=== PATIENT | female | born 1975 | race Caucasian/White ===

== ENCOUNTER 2017-12-20 05:36 | Inpatient (IN) ==
[2017-12-20] MEDS ORDERED: Lactated Ringers 1,000 ML PRIMARY IV ONE ×2 (05:48→06:00)
[2017-12-20] MEDS ORDERED: LIDOCAINE W/ SODIUM BICARB 0.5 ML SYR ONE (05:48)
[2017-12-20] MEDS ORDERED: ceFAZolin Inj 2gm (Premix) 0 GM/0 ML BAG IV ONE (05:48)
[2017-12-20] MEDS ORDERED: CLINDAMYCIN IV ONE (05:55)
[2017-12-20] MEDS ORDERED: LIDOCAINE W/ SODIUM BICARB 0.5 ML SYR SUBD ONE (06:00)
[2017-12-20] MEDS ORDERED: Nasal Sanitizer POPSWAB ampule 3 AMP (Nozin) PREOP DOSE ENOS SCH (06:00)
[2017-12-20] MEDS ORDERED: Clindamycin 900mg (Premix) 900 MG/50 ML BAG IV ONE (06:00)
[2017-12-20 06:07] LABS: URINE SPECIFIC GRAVITY - MAN 1.024
[2017-12-20 06:45] VITALS: BP 100/69; RESP 18; TEMP 97.4; O2SAT 95
[2017-12-20] MEDS ORDERED: Propofol 1,000 MG/100 ML VIAL IV ONE (07:05)
[2017-12-20] MEDS ORDERED: MIDAZOLAM 5 MG/1 ML ONE (07:06)
[2017-12-20] MEDS ORDERED: fentaNYL Inj 250 MCG/5 ML VIAL ONE (07:06)
[2017-12-20] MEDS ORDERED: REMIFENTANIL 1 MG/1 ML IV ONE (07:06)
[2017-12-20] MEDS ORDERED: LIDOCAINE MPF 2% - 5 ML (20 MG/1 ML) ONE (07:12)
[2017-12-20] MEDS ORDERED: Sodium Chloride 0.9% vial 0 ML ONE (07:25)
[2017-12-20] MEDS ORDERED: BUPIVACAINE 0.25% W/ EPI - 10 ML VIAL ONE (07:25)
[2017-12-20] MEDS ORDERED: BACITRACIN 50,000 UNIT VIAL IRRIG ONE (07:25)
--- NOTE | 2018-01-01 15:28 | PDOC(PROG) ---
General Note Progress Note: Ms. Valdez was to undergo a multilevel anterior cervical discectomy and fusion. She was admitted to the pre-operative area and I updated her surgical history and physical, reviewed the procedure to be performed with the patient and checked that her consent matched this, and answered any questions that Ms. Valdez had. Shortly after, she started having severe abdominal cramps and diarrhea. Her surgery was cancelled and she was sent to the Emergency Department for evaluation.
--- NOTE | 2018-01-01 15:34 | NEURO.DC ---
Discharge Summary Admit Date: 12/20/17 Discharge Date: 12/20/17 Admitting Diagnosis: Neck pain Discharge Diagnosis: Neck pain/abdominal cramps/diarrhea Primary Surgery and Date: Surgery Cancelled Other Surgery and Date: None Hospital Course: Patient was discharged from the pre-operative area to present to the Emergency Department for the severe abdominal cramps and diarrhea that she developed in the pre-operative area prior to her planned surgical procedure. Her surgical procedure was subequently cancelled. See physician note from same day for more details. Exam - Vitals Vital Signs: Vital Signs Temperature 97.4 F Pulse Rate 55 Respiratory Rate 18 Blood Pressure 100/69 Pulse Ox 95 Oxygen Flow Rate RA Height 5 ft 2 in Weight 164 lb
== END 2017-12-20 08:05 | disposition short-term general hospital (02) | DRG 951 ==
LOC: OPS 05:36
PROVIDERS: ADMIT Neurological Surgery; ATTEND Neurological Surgery

== ENCOUNTER 2018-03-08 05:40 | Inpatient (IN) ==
[2018-03-08] MEDS ORDERED: Clindamycin 900mg (Premix) 900 MG/50 ML BAG IV ONE ×2 (06:00→06:07)
[2018-03-08] MEDS ORDERED: Nasal Sanitizer POPSWAB ampule 3 AMP (Nozin) PREOP DOSE ENOS SCH (06:00)
[2018-03-08] MEDS ORDERED: LIDOCAINE W/ SODIUM BICARB 0.5 ML SYR SUBD ONE (06:00)
[2018-03-08] MEDS ORDERED: Lactated Ringers 1,000 ML PRIMARY IV ONE ×2 (06:00→06:07)
[2018-03-08] MEDS ORDERED: LIDOCAINE W/ SODIUM BICARB 0.5 ML SYR ONE ×2 (06:07→07:13)
[2018-03-08] MEDS ORDERED: ATROPINE SULFATE 0.4 MG/1 ML VIAL IVP PRN (06:33)
[2018-03-08] MEDS ORDERED: ONDANSETRON 4 MG/2 ML VIAL IVP PRN ×2 (06:33→14:41)
[2018-03-08] MEDS ORDERED: LIDOCAINE W/ SODIUM BICARB 0.5 ML SYR SUBD PRN (06:33)
[2018-03-08] MEDS ORDERED: Ondansetron ODT Tab 8 MG TAB PO PRN (06:33)
[2018-03-08] MEDS ORDERED: fentaNYL Inj 100 MCG/2 ML VIAL IVP PRN (06:33)
[2018-03-08] MEDS ORDERED: Prochlorperazine Edisylate Inj 10mg/2ml vial IVP PRN ×2 (06:33→14:41)
[2018-03-08 06:39] LABS: URINE SPECIFIC GRAVITY - MAN 1.015
[2018-03-08 06:43] LABS: BILIRUBIN,URINE NEGATIVE (NEG); CLARITY,URINE CLEAR (CLEAR); COLOR,URINE YELLOW (Y); GLUCOSE, URINE (UA) NEGATIVE (NEG); OCCULT BLOOD,URINE NEGATIVE (NEG); PH,URINE 5.5 (5.0-8.5); PROTEIN,URINE NEGATIVE (NEG); UROBILINOGEN,URINE 0.2 EU/dL (0.2)
[2018-03-08 06:44] LABS: BACTERIA,URINE FEW; SQUAMOUS EPITHELIAL CELL,UR MANY; URINE SAMPLE TYPE VOIDED SPECIMEN
[2018-03-08] MEDS ORDERED: Lactated Ringers 1,000 ML PRIMARY IV SCH (06:45)
[2018-03-08] MEDS ORDERED: fentaNYL Inj 250 MCG/5 ML VIAL ONE (06:52)
[2018-03-08] MEDS ORDERED: MIDAZOLAM 5 MG/1 ML ONE (06:52)
[2018-03-08] MEDS ORDERED: KETAMINE 100 MG/1 ML - 5 ML ONE (06:52)
[2018-03-08] MEDS ORDERED: Propofol 2,000 MG/200 ML VIAL IV ONE (06:53)
[2018-03-08] MEDS ORDERED: REMIFENTANIL HCL 2 MG VIAL IV ONE (06:54)
[2018-03-08] MEDS ORDERED: VECURONIUM BROMIDE 10 MG VIAL ONE (07:03)
[2018-03-08] MEDS ORDERED: BUPIVACAINE 0.25% W/ EPI - 10 ML VIAL ONE (07:12)
[2018-03-08] MEDS ORDERED: Sodium Chloride 0.9% vial 10 ML ONE ×3 (07:12→12:09)
[2018-03-08] MEDS ORDERED: BACITRACIN 50,000 UNIT VIAL IRRIG ONE ×3 (07:13→12:10)
[2018-03-08] MEDS ORDERED: DEXAMETHASONE PF 10 MG/1 ML VIAL ONE (08:11)
[2018-03-08] MEDS ORDERED: GLYCOPYRROLATE 0.2 MG/1 ML VIAL ONE (08:12)
[2018-03-08] MEDS ORDERED: Propofol 1,000 MG/100 ML VIAL IV ONE (11:29)
[2018-03-08] MEDS: HYDROmorphone 2 MG/1 ML IVP PRN ×5 (12:56→14:14)
[2018-03-08] MEDS ORDERED: HYDROmorphone 2 MG/1 ML ONE ×2 (13:00→13:30)
[2018-03-08] MEDS ORDERED: BISACODYL 5 MG TABLET PO PRN (14:41)
[2018-03-08] MEDS ORDERED: PROMETHAZINE 25 MG/1 ML VIAL IM PRN (14:41)
[2018-03-08] MEDS ORDERED: DOCUSATE 100 MG CAPSULE PO PRN (14:41)
[2018-03-08] MEDS ORDERED: MAGNESIUM 400 MG/5 ML - 30 ML (MILK OF MAGNESIA) PO PRN (14:41)
[2018-03-08] MEDS ORDERED: Fleet Enema 133ml RECTAL PRN (14:41)
[2018-03-08] MEDS ORDERED: MAGNESIUM CITRATE 296 ML SOLUTION PO PRN (14:41)
[2018-03-08] MEDS ORDERED: MORPHINE SULFATE 2 MG/1 ML IVP PRN (14:41)
[2018-03-08] MEDS ORDERED: Ondansetron ODT Tab 4 MG TAB PO PRN ×2 (14:41)
[2018-03-08] MEDS ORDERED: ALBUTEROL SULFATE 8.5 GM HFA INHALER INH PRN (14:41)
[2018-03-08] MEDS ORDERED: ALBUTEROL SULFATE 2.5 MG/3 ML NEB PRN (14:59)
[2018-03-08] MEDS: Clindamycin 900mg (Premix) 900 MG/50 ML BAG IV SCH (15:32)
[2018-03-08] MEDS: Dexamethasone Tab 4 MG TABLET PO SCH ×2 (15:33→21:35)
[2018-03-08] MEDS: HYDROcodone-APAP 10 MG-325 MG TABLET PO PRN ×2 (17:26→21:36)
--- NOTE | 2018-03-08 17:51 | CRNA.PROGR ---
Post Anesthesia Phase II - Post Anesthesia Phase II Patient Stable and Discharged To: Med/Surg Care Assumed By Surgeon: Tahir Castillo MD Temperature: 97.8 F Pulse Rate: 78 Respiratory Rate: 20 Blood Pressure: 110/52 Pulse Ox: 98 Total Sindhu Score at Discharge: 9 Post Anesthesia Discharge Criteria Met: Yes
--- NOTE | 2018-03-08 17:51 | CRNA.PROGR ---
Anesthesia Time - Procedure/Recovery Time Start Date: 03/08/18 End Date: 03/08/18 Anesthesia : Time In: 07:22 Anesthesia : Time Out: 12:51 Anesthesia : Total Time: 329 - Total Anesthesia Time Total Anesthesia Time (minutes): 329 - Other Weight: 72.575 kg Height: 5 ft 2 in Body Mass Index (BMI): 29.2 Physical Status: P2 Anesthesia Type: General Anesthesia : ET (NIMS Technique)
--- NOTE | 2018-03-08 17:56 | CRNA.PROGR ---
Anesthesia Note - Progress Notes Anesthesia Progress Note: Spome nausea this evening. Pain comes and goes. Has an element of spasm to it. Some nausea present. Relieved with Zofran.Able to swallow okay.
[2018-03-08] MEDS: CYCLOBENZAPRINE 10 MG TABLET PO PRN (19:28)
--- NOTE | 2018-03-08 19:38 | GEN.OPNOTE ---
Operative Note Surgery Date: 03/08/18 Preoperative Diagnosis: 1. Neck pain. 2. Cervicogenic headaches. 3. Right upper extremity radicular symptoms. 4. Multilevel cervical degenerative disc disease C4-5, C5-6 and C6-7. 5. Multilevel cervical spondylosis C4-5, C5-6 and C6-7. 6. Broad based disc bulge with a super imposed right paracentral herniated nucleus pulposus C5-6. 7. Broad based disc bulge with super imposed left paracentral/lateral disc herniation C6-7. Postoperative Diagnosis: 1. Neck pain. 2. Cervicogenic headaches. 3. Right upper extremity radicular symptoms. 4. Multilevel cervical degenerative disc disease C4-5, C5-6 and C6-7. 5. Multilevel cervical spondylosis C4-5, C5-6 and C6-7. 6. Broad based disc bulge with a super imposed right paracentral herniated nucleus pulposus C5-6. 7. Broad based disc bulge with super imposed left paracentral/lateral disc herniation C6-7. Procedure: 1.) Anterior cervical discectomy, C4-5 with removal of the posterior longitudinal ligament and foraminotomies bilaterally for decompression of the spinal canal and neuroforamen bilaterally, and interbody arthrodesis in preparation for fusion of the C4-5 level. (CPT code: 59730). 2.) Anterior cervical discectomy, C5-6 with removal of the posterior longitudinal ligament and foraminotomies bilaterally for decompression of the spinal canal and neuroforamen bilaterally, and interbody arthrodesis in preparation for fusion of the C5-6 level. (CPT code: 92556). 3.) Anterior cervical discectomy, C6-7 with removal of the posterio longitudingal ligament and foraminotomies bilaterally for decompression of the spinal canal and neuroforamen bilaterally, and interbody arthrodesis in preparation for fusion of the C6-7 level. (CPT code: 81779). 4.) Insertion of a 7 mm x 14 mm x 16 mm Tritanium C titanium anterior cervical cage filled in the center with Cerapedic's i-FACTOR peptide enhanced bone graft into the C4-5 interspace for fusion of the C4-5 interspace (CPT code: 10628). 5.) Insertion of a 7 mm x 14 mm x 16 mm Tritanium C titanium anterior cervical cage filled in the center with Cerapedic's i-FACTOR peptide enhanced bone graft into the C5-6 interspace for fusion of the C5-6 interspace. (CPT code: 63940). 6.) Insertion of a 7 mm x 14 mm x 16 mm Tritainum C titanium anterior cervical cage filled in the center with Cerapedic's i-FACTOR peptide enhanced bone graft into the C6-7 interspace for fusion of the C5-6 interspace. (CPT code: 21456). 7.) Anterior cervical plating, C4-C7 using a 3 level, 8- hole, 48 mm [place] Aviator titanium anterior cervical plate affixed to the C4, C5, and C6 vertebral bodies using 4.0 x 16 mm variable angle titanium anterior cervical screws and to the C7 vertebral body using 4.0 x 16 mm fixed angle titanium anterior cervical screws. 8.) Use of Cerapedic's i-FACTOR peptide enhanced bone graft (allograft) for filling of the anterior cervical cages (CPT code: 11724). 9.) Use of the operative microscope for the microsurgical techniques used for the discectomies. (CPT code: 72714). 10.) Use of intra- operative fluoroscopy for localization of correct surgical levels and for confirmation of final position of intervertebral cage and confirmation of final position of anterior cervical hardware elements. 11.) Use of intra-operative neuromonitoring including free running EMG's, SSEP's, and MEP's. 5.) Surgeon: Tahir Castillo MD Press Setter: LUIS EDUARDO Sorenson Anesthesia Provider: Nicole Villafana CRNA Anesthesia Type: General Estimated Blood Loss (mL): 175 Fluids: See anesthesia record Pathology: None Indications: Ms. Valdez is a 42 year old female who has had neck and right arm pain unresponsive to expectant management and non-operative therapies. She had imaging studies demonstrating degenerative disc disease and cervical spondylosis most prominent at C4-5, C5-6, and C6-7 with a right C5-6 and left C6-7 herniated nucleus propulsis and multilevel severe neuroforaminal stenosis. We discussed the option of proceeding with a C4-5, C5-6, and C6-7 anterior cervical discectomy and fusion for her persistent chronic neck pain and arm symptoms. She wished to proceed with surgical treatment. She presents today for the procedure. Findings: 1.) Diffuse posterior disc/osteophyte complexes, C4-5, C5-6, C6-7. 2.) Uncovertebral hypertrophy. 3.) Right C5-6 and left C6-7 herniated nucleus propulsis. 4.) Multilevel neuroforaminal stenosis. Complications: None Operative Summary: Miss Valdez was met in the preoperative area. Her surgical history and physical was reviewed. The procedure to be performed was confirmed with Ms. Valdez and we were both in agreement on the procedure to be performed and this matched what was written on the patient's consent form. Any questions that Mrs. Valdez or family members had were answered before she was taken back to the operating room suite. Miss Valdez was brought back to the operating room suite and moved over onto the surgical bed in the supine position. General anesthesia was induced and she was intubated by the anesthesia staff. She had a Graf catheter placed or bladder for the procedure. She pneumatic compression hose placed on her lower legs bilaterally. Her head rested on a gel ring and rolled up surgical towels were placed beneath her shoulders and in between her shoulder blades. Her arms are gently tucked at her sides. All bony prominences were well padded. Her shoulders were gently retracted with surgical tape. The C-arm fluoroscopy unit was used to help localize the skin incision for the approach to the intended surgical levels. The intended skin incision was demarcated along the medial border of the sternocleidomastoid muscle with a skin marker. Several crosshatches were made across the intended skin incision with a skin marker as well. Ms. Valdez was prepped and draped in the usual and standard fashion. She was given 900 mg of Cleocin IV for perioperative antibiosis. She was given 10 mg of Decadron IV. The intended skin incision was injected subcutaneously with quarter percent Marcaine with 1 in 200,000 epinephrine. 5 mL of local anesthetic was used. The skin was incised with a 10 blade scalpel and all dermal and superficial subcutaneous bleeding points were controlled bipolar cautery. The dissection was continued down to the level of the platysma muscle. The platysmal muscle w as opened in the direction of the skin incision with the Metzenbaum scissors. This allowed identification and the medial border of the sternocleidomastoid muscle. A large vein along the medial border of the sternocleidomastoid muscle was encountered. This vein had two much smaller veins proceeding medially which were coagulated with bipolar cautery and cut with microscissors. The large vein was dissected out and mobilized such that it could be moved laterally or medially as needed for the further surgical dissection. Further dissection yielded the omohyoid muscle. The large vein was mobilized laterally for the further dissection for the procedure. The omohyoid muscle was circumferentially dissected and was then tagged medially and laterally with silk sutures. The muscle was then cut sharply with the Metzenbaum scissors. The muscle stumps were retracted with the silk sutures attached snaps. Further dissection was performed in both sharp and blunt fashion down to the prevertebral fascia. The carotid artery was palpated to the lateral to the dissection plane. The Cloward hand-held retractors were then used to retract and protect the soft tissues while the prevertebral fascia was dissected with a Kitner instrument. When he disc space became exposed, the disc space with a prominent anterior osteophyte complex, a bent spinal needle was placed into the disc space and the disc space was localized with lateral fluoroscopy as being the C5-6 disc space. Further prevertebral dissection was performed with a Kitner instrument until the C4 C5 C6 and C7 vertebral bodies were exposed. The large anterior osteophyte at C5-6 was removed with a large Leksell rongeur. The medial border of the longus coli muscle was then dissected with Bovie cautery with an insulated tip turned down to a low setting from C4-C7 bilaterally. The hand-held Cloward retractors were then replaced with the belt maker helper self-retaining retractor system which was first placed across the C4-5 level for the exposure this level and the protection of the soft tissues at this level. 12 mm Milford distraction pins were placed into the C4 and C5 vertebral bodies. The operative microscope was brought into the surgical field and used for microsurgical techniques used for the discectomy at C4-5. An annulotomy was performed with a 15 blade scalpel and disc material was removed with a pituitary rongeur. Additional disc and cartilaginous endplate was loosened in the interspace with a small straight curet. The fragments were removed with a pituitary rongeur. The Sunfire high-speed electrical drill with a matchstick bit was then used to decorticate the C4 and C5 endplates in preparation for fusion of the C4-5 interspace. The same drill with the same bit was then used to drill away the diffuse osteophytes along the posterior inferior aspect of the C4 vertebral body and the posterior superior aspect of the C5 vertebral body. The uncovertebral joint hypertrophy was drilled away b ilaterally as well and foraminotomies were performed bilaterally with the same drill with the same bit. A nerve hook was used to define the plane between the posterior longitudinal ligament and the dura. The posterior longitudinal ligament was completely removed in the interspace with a small Kerrison punch. The same instrument was used to extend the foraminotomies that had been started with the high-speed drill with a matchstick bit. Excellent decompression of the spinal canal, neuroforamen, and exiting nerve roots was assured both by visual inspection as well as by palpation with a nerve hook underneath vertebral bodies and out the neuroforamen bilaterally. Interspace was irrigated with bacitracin irrigation. FloSeal hemostatic agent was placed over the exposed dural elements. The interspace was sized for the appropriate size anterior cervical cage. A 7 mm x 14 mm x 16 mm Tritanium C titanium anterior cervical cage was selected and filled in the center with Cerapedic's i-FACTOR peptide enhanced bone graft (allograft) and inserted into the C4-5 interspace with the laboratory geneticist. The cage was gently countersunk with a bone tamp and mallet. The cage obtained good purchase between the C4 and C5 endplates. The final position of the cage was confirmed with lateral fluoroscopy. The C4 [place] distraction pin was removed. Bony bleeding was controlled with FloSeal hemostatic agent and surgical patties. The belt maker helper self-retaining retractor system was removed and then placed across the C5-6 level for the exposure of this level on the protection of the soft tissues at this level. The [place] distraction pin was placed into this the C6 vertebral body. The operative microscope was used for microsurgical techniques used for the discectomy at C5-6. An annulotomy was performed with a 15 blade scalpel and disc material was removed with a pituitary rongeur. Additional disc and cartilaginous endplate was loosened in the interspace with a small straight curet. The fragments were removed with a pituitary rongeur. A right sided herniated nucleus propulsis was encountered at this level as expected and removed with the pituiatary rongeur. The [employer] [place] Chau high-speed electrical drill with a matchstick bit was then used to decorticate the C5 and C6 endplates in preparation for fusion of the C5-6 interspace. The same drill with the same bit was then used to drill away the diffuse osteophytes along the posterior inferior aspect of the C5 vertebral body and the posterior superior aspect of the C6 vertebral body. The uncovertebral joint hypertrophy was dri lled away bilaterally as well and foraminotomies (severe bilateral neuroforaminal stenosis was encountered at this level) were performed bilaterally with the same drill with the same bit. A nerve hook was used to define the plane between the posterior longitudinal ligament and the dura. The posterior longitudinal ligament was completely removed in the interspace with a small Kerrison punch. The same instrument was used to extend the foraminotomies that had been started with the high-speed drill with a matchstick bit. Excellent decompression of the spinal canal, neuroforamen, and exiting nerve roots was assured both by visual inspection as well as by palpation with a nerve hook underneath vertebral bodies and out the neuroforamen bilaterally. Interspace was irrigated with bacitracin irrigation. FloSeal hemostatic agent was placed over the exposed dural elements. The interspace was sized for the appropriate size anterior cervical cage. A 7 mm x 14 mm x 16 mm Tritanium C titanium anterior cervical cage was selected and filled in the center with Cerapedic's i-FACTOR peptide enhanced bone graft (allograft) and inserted into the C5-6 interspace with the laboratory geneticist. The cage was gently countersunk with a bone tamp and mallet. The cage obtained good purchase between the C5 and C6 endplates. The final position of the cage was confirmed with lateral fluoroscopy. The C5 [place] distraction pin was removed. Bony bleeding was controlled with FloSeal hemostatic agent and surgical patties. The belt maker helper self-retaining retractor system was removed and then placed across the C6-7 level for the exposure of this level on the protection of the soft tissues at this level. The [place] distraction pin was placed into this the C7 vertebral body. The operative microscope was used for microsurgical techniques used for the discectomy at C6-7. An annulotomy was performed with a 15 blade scalpel and disc material was removed with a pituitary rongeur. Additional disc and cartilaginous endplate was loosened in the interspace with a small straight curet. The fragments were removed with a pituitary rongeur. A left sided herniated nucleus propulsis was encountered at this level as expected and removed with the pituiatary rongeur. The Sunfire high-speed electrical drill with a matchstick bit was then used to decorticate the C6 and C7 endplates in preparation for fusion of the C6-7 interspace. The same drill with the same bit was then used to drill away the diffuse osteophytes along the posterior inferior aspect of the C6 vertebral body and the posterior superior aspect of the C7 vertebral body. The uncovertebral joint hypertrophy was drilled away bilaterally as well and foraminotomies (severe bilateral neuroforaminal stenosis was encountered at this level as well) were performed bilaterally with the same drill with the same bit. A nerve hook was used to define the plane between the posterior longitudinal ligament and the dura. The posterior longitudinal ligament was completely removed in the interspace with a small Kerrison punch. The same instrument was used to extend the foraminotomies that had been started with the high-speed drill with a matchstick bit. Excellent decompression of the spinal canal, neuroforamen, and exiting nerve roots was assured both by visual inspection as well as by palpation with a nerve hook underneath vertebral bodies and out the neuroforamen bilaterally. Interspace was irrigated with bacitracin irrigation. FloSeal hemostatic agent was placed over the exposed dural elements. The interspace was sized for the appropriate size anterior cervical cage. A 7 mm x 14 mm x 16 mm Tritanium C titanium anterior cervical cage was selected and filled in the center with Cerapedic's i-FACTOR peptide enhanced bone graft (allograft) and inserted into the C6-7 interspace with the laboratory geneticist. The cage was gently countersunk with a bone tamp and mallet. The cage obtained good purchase between the C6 and C7 endplates. The final position of the cage was confirmed with lateral fluoroscopy. The [place] distraction pins were removed. Bony bleeding was controlled with FloSeal hemostatic agent and surgical patties. The belt maker helper self-retaining retractor system was removed and then placed in the center of the surgical dissection for the exposure needed for the instrumentation portion of the procedure. Any remaining anterior osteophytes from C4-C7 were removed with a large Leksell rongeur and the high-speed electrical drill with a matchstick bit. The appropriate size anterior cervical plate was selected both by visual inspection as well as by lateral fluoroscopy. A 3 level VIII hole 48 mm Sofie aviator titanium anterior cervical plate was selected and affixed to the C4, C5, and C6 vertebral bodies using 4.0 mm x 16 mm variable angle titanium anterior cervical screws into the C7 vertebral body using 4.0 mm x 16 mm fixed angle titanium anterior cervical screws. All screws obtained good purchase in the vertebral body bone. The locking mechanism was then deployed at each level and visual observation confirmed with a locking mechanism indeed fully deployed across each of the screw heads at each level bilaterally. Final AP and lateral fluoroscopic images were obtained. The belt maker helper self-retaining retractor system was removed from the surgical site. The reese of the dissection planes were inspected for any bleeding points. Any identified were coagulated with bipolar cautery. The surgical site was copiously irrigated with bacitracin irrigation. The irrigant was allowed to sit looking for the identification of any further bleeding points and none were identified. The medium SELENE drain was placed into the surgical site. The omohyoid muscle was reapproximated with the 2-0 silk suture attached the muscle stumps. The platysma muscle was reapproximated with 3-0 Vicryl suture in an interrupted fashion. The dermis and superficial subcutaneous tissue was reapproximated with 3-0 Vicryl suture in an inverted interrupted fashion. The final layer of closure was performed with 4-0 Monocryl suture in a running subcuticular fashion. The Ioban drape was pulled back from the skin edges. The skin edges were cleansed with bacitracin soaked sponge. Steri-Strips were placed across the incision. The incision was dressed with a Mepilex dressing. The surgical drain was secured with suture. The drain site was then dressed. All surgical drapes removed from Ms. Valdez. She was then carefully moved over onto the PACU stretcher. She was awoken and a the anesthesia staff. She w as taken the recovery room in stable condition. All surgical counts reported as correct by the scrub and circulating personnel. A physician's assistant grocery store manager, Mrs. Shalonda Barnes PA-C, assisted with the procedure including the exposure and closure portions of the procedure. She also provided irrigation and suctioning throughout the procedure.
--- NOTE | 2018-03-08 21:19 | NEURO.PROG ---
Subjective Post Op Day: 0 Pain Management: PO Graf Catheter: Yes Diet: Regular Ambulating: Yes Additional Details: Awake and alert. Lying comfortable in floor bed. Indicates that arm symptoms improved. Neck soft and flat. Moving all extremities well. PLAN: 1.) Continue post-operative antibiotics. 2.) Continue post-operative pain control. 3.) Advance diet. 4.) Mobilize. Objective : Data - Vital Signs Vital Signs and I&O: Vital Signs - Last Taken Temperature 97.8 F 03/08/18 16:41 Pulse Rate 104 H 03/08/18 16:41 Respiratory Rate 20 03/08/18 16:41 Blood Pressure 131/89 03/08/18 16:41 Pulse Ox 98 03/08/18 16:41 Intake and Output (24hr x 4 totals) 03/06/18 03/07/18 03/08/18 03/09/18 05:59 05:59 05:59 05:59 Intake Total 3240 / 3240 Output Total 1170 / 1170 Balance 2069 / 2069
[2018-03-09] MEDS: Clindamycin 900mg (Premix) 900 MG/50 ML BAG IV SCH (00:36)
[2018-03-09] MEDS: HYDROcodone-APAP 10 MG-325 MG TABLET PO PRN ×2 (01:48→08:52)
[2018-03-09] MEDS: CYCLOBENZAPRINE 10 MG TABLET PO PRN (01:48)
[2018-03-09] MEDS: Dexamethasone Tab 4 MG TABLET PO SCH ×2 (01:49→08:52)
--- NOTE | 2018-03-09 05:07 | NEURO.PROG ---
Subjective Post Op Day: 1 Pain Management: PO Graf Catheter: No Flatus: Yes Diet: Regular Ambulating: Yes Additional Details: Awake and alert. No complaints. Neck better. Pain under arms resolved. Neck soft and flat. Able to lift arms and place hands on head and straight up in the air bilaterally. Good movement all extremities. PLAN; 1.) Continue post-operative antibiotics. 2.) Continue post-operative pain medications. 3.) Continue to mobilize. 4.) Discharge to home later this morning. Objective : Data - Vital Signs Vital Signs and I&O: Vital Signs - Last Taken Temperature 97.6 F 03/09/18 00:41 Pulse Rate 88 03/09/18 00:41 Respiratory Rate 18 03/09/18 00:41 Blood Pressure 107/63 03/09/18 00:41 Pulse Ox 95 03/09/18 03:50 Intake and Output (24hr x 4 totals) 03/06/18 03/07/18 03/08/18 03/09/18 05:59 05:59 05:59 05:59 Intake Total 4215 / 4215 Output Total 2885 / 2885 Balance 1330 / 1330
[2018-03-09 05:19] LABS: BASOPHILS # (AUTO) 0.01 10*3/UL; BASOPHILS % (AUTO) 0.1 % (0-1); EOSINOPHILS # (AUTO) 0 10*3/UL; EOSINOPHILS % (AUTO) 0 % (0-8); Hematocrit [HCT] 34.6 % (37.0-47.0); Hemoglobin [HGB] 10.7 g/dL (12.0-16.0); LYMPHOCYTES # (AUTO) 0.67 10*3/uL; MEAN CORPUSCULAR HEMOGLOBIN 26.7 PG (27-31); MEAN CORPUSCULAR HGB CONC 30.9 g/dL (33-37); MEAN CORPUSCULAR VOLUME 86.3 FL (81-99); MEAN PLATELET VOLUME 9.9 FL (7.4-12.2); MONOCYTES # (AUTO) 0.22 10*3/UL (0.3-0.8); MONOCYTES % (AUTO) 1.8 % (5-15); NEUTROPHILS # (AUTO) 11.56 10*3/UL; NEUTROPHILS % (AUTO) 92.5 % (50-80); RED BLOOD COUNT 4.01 10^6/uL (4.20-5.40)
[2018-03-09 05:33] LABS: BLOOD UREA NITROGEN 12 mg/dL (7-22)
[2018-03-09 06:10] LABS: PLATELET MORPHOLOGY COMMENT NORMAL MORPHOLOGY (NORM); RBC MORPHOLOGY COMMENT NORMAL MORPHOLOGY (NORM); WBC MORPHOLOGY COMMENT NORMAL MORPHOLOGY (NORM)
[2018-03-09] MEDS ORDERED: OMEPRAZOLE 20 MG CAPSULE PO SCH (07:00)
[2018-03-09] MEDS ORDERED: Multivitamin Tab 1 TAB PO SCH (09:00)
[2018-03-09] MEDS ORDERED: Triamterene/HCTZ 75/50 Tab 1 TAB TAB PO SCH (09:00)
--- NOTE | 2018-03-09 09:23 | NEURO.PROG ---
Subjective Post Op Day: 1 Pain Management: PO Graf Catheter: No Flatus: Yes Diet: Regular Ambulating: Yes Additional Details: Ms Valdez is ready for discharge home. As per Dr. Castillo this am her symptoms have resolved, her arm strength is good and her pain is well controlled. Her incision is dry and intact. She was given post op instructions to include activity and incision care. She has been given an appointment to see Dr. Castillo in follow up on Feb 24, 2018 in clinic in [place]. Objective : Data - Labs CBC and BMP: 03/09/18 04:40 03/09/18 04:40 - Vital Signs Vital Signs and I&O: Vital Signs - Last Taken Temperature 97.1 F 03/09/18 08:36 Pulse Rate 106 H 03/09/18 08:36 Respiratory Rate 20 03/09/18 08:36 Blood Pressure 130/75 03/09/18 08:36 Pulse Ox 93 03/09/18 08:36 Intake and Output (24hr x 4 totals) 03/07/18 03/08/18 03/09/18 03/10/18 05:59 05:59 05:59 05:59 Intake Total 4415 / 4415 Output Total 3435 / 3435 600 / 600 Balance 980 / 980 -600 / -600
--- NOTE | 2018-03-09 09:33 | OTI REPORT ---
Thank you for the referral of Claire Valdez. She was seen on 03/08/18 for an occupational therapy inpatient evaluation post op cervical fusion. SUBJECTIVE: The patient is a 43-year-old female. The patient currently reports a pain level of 8/10 on the verbal analog scale (0=no pain, 10=worst pain). The patient reports that she is having some difficulty swallowing, mainly related to some throat soreness. The patient reports that at prior level of function she did need some help ascending and descending her stairs in her home. The patient lives in a townhouse here in [place] with two steps to the entrance of the home and 13 steps to get upstairs. The patient does report upon discharge from the hospital she will be going to [place] to spend the holiday with her daughter. The patient does have help at home from her son as well as her significant other. The patient reports at prior level of function she had difficulty with bilateral leg and feet pain and numbness, arm pain and numbness, and very bad headaches. The patient did use the TENS unit at prior level of function to assist with pain. The patient is currently on two liters of oxygen; however, she is not on oxygen at home. PAST MEDICAL HISTORY: Past medical history can be found in the patient's medical record. OBJECTIVE FINDINGS: Objective findings: The patient was sitting upright in bed without her neck brace on. The patient was instructed in post surgical precautions to include lifting restrictions as well as end range stretches in the neck. Range of motion/Strength: Due to the patient's post surgical precautions, no active range of motion or upper extremity strength was assessed. ASSESSMENT: The patient would benefit from skilled occupational therapy to ensure safety and following precautions with dressing tasks and possible assessment of swallowing. Rehab potential is good. Problem List: Decreased ability to complete lower extremity/upper extremity dressing Decreased functional mobility Short-Term Goals: To be met by discharge from inpatient: Patient will demonstrate the ability to complete functional mobility tasks with contact guard assist for safety to include functional transfers. Patient will demonstrate the ability to complete lower extremity dressing task with use of adaptive equipment as needed. Patient will complete upper extremity dressing task with set up assistance only. Long-Term Goals: To be met following discharge from inpatient: Patient may be seen by outpatient physical therapy upon discharge. TREATMENT PLAN: Patient will be seen B.I.D during the week and one time per day over the weekend as an inpatient to address the above goals and objectives. INITIAL TREATMENT: Treatment today consisted of the initial evaluation activities only due to the patient just getting dinner. Tomorrow morning we will need to assess need of adaptive equipment and lower/upper extremity dressing. RENETTA
--- NOTE | 2018-03-09 12:52 | PTI REPORT ---
Thank you for the referral of Claire Valdez. She was seen on 03/08/18 for an inpatient evaluation status post cervical fusion. SUBJECTIVE: The patient is a 43-year-old female who underwent a cervical fusion earlier today. The patient states that she has a pain level of 8/10 on the verbal analog scale (0=no pain, 10=worst pain) and is having a little difficulty with swallowing. The patient states that prior to her surgery she was needing some help with getting up the stairs at their townhouse. She does have a significant other that she lives with and also a son that would help her as needed as she states that she gets some zinging pain into her bilateral upper and bilateral lower extremities. The patient denies any falls over the last six months and states that she does not use an assistive device. The patient states that she lives here in [place]. She states that they have two stairs into the home and 13 stairs to the main floor. The patient does state that she is going to go to her daughter's house in [place] after she is discharged from the hospital for [place]. PAST MEDICAL HISTORY: Past medical history can be found in the patient's medical record. OBJECTIVE FINDINGS: General observations: The patient was alert and oriented to setting upon PT arrival. The patient did have a drain in place, was on two liters of oxygen, and did have an IV in place. The patient stated that she was hungry and her dinner had just come upon the therapist's arrival. The patient does report some issues with swallowing as she states it is sore when she swallows, but she denies any food getting caught when she has been trying to eat. The patient was instructed on post op precautions for a cervical fusion including to maintain range of motion but to avoid end ranges and also lifting precautions. The patient verbalized understanding of these precautions. The patient states that she has been up one time with nursing staff to use the bathroom but refused to get up at this time secondary to her pain and she also wanted to eat her supper. We did discuss coming back in the morning for physical therapy to make sure that the patient is safe to ambulate and also to perform stairs so that she is safe to return back home. The patient agreed to this. Bed mobility: The patient does require assistance from her significant other when she wants to change positions in the bed as she states that she does not feel like she can push up from the bed. Pain: The patient rates her pain as an 8/10. ASSESSMENT: The patient has good rehab potential. Problem List: Patient is status post cervical fusion Short-Term Goals: To be met by discharge from inpatient: Patient will be able to transfer from bed to stand safely and independently. Patient will be able to ambulate 150 feet safely and independently. Patient will be able to perform one flight of stairs safely and independently in order to return back home. Long-Term Goals: To be met following discharge from inpatient: Patient may be seen by outpatient physical therapy if deemed necessary by her surgeon. TREATMENT PLAN: Patient will be seen tomorrow morning in order to address our goals. INITIAL TREATMENT: Treatment today consisted of the initial evaluation only. The patient was left in bed with alarm set and call light within reach. RENETTA
--- NOTE | 2018-03-09 16:31 | PT AM DAY ---
Diagnosis : Cervical Fusion AM - Physical Therapy S: The patient states she is doing very well this morning and is hoping to be discharged after being cleared from physical therapy. The patient reports her pain as a 6/10 on the verbal analog scale (0=no pain, 10=worst pain). O: The patient was able to complete two laps around the nurse's station (2x 150 feet) with stand by assist x1 for safety and did have her cervical collar in place during ambulation. The patient then ascended and descended two flights of stairs safely with stand by assist x1 for safety. The patient was left with occupational therapy. A: The patient has met physical therapy goals and is cleared on a physical therapy aspect to return back home. P: Patient will be discharged from physical therapy. NITAD
--- NOTE | 2018-03-09 16:51 | OT.PROG ---
Progress Note Progress Note: S: pt stated she was feeling a lot better today and wanted to be discharged today. O: pt completed ADL task of dressing. pt was able to jewel UE and LE independently at EOB. pt was able to jewel neck brace independently as well. A: pt have improved and is independent in all ADLS. P: pt is d/c from skilled OT services.
[2018-03-16 17:18] VITALS: BP 130/75; RESP 20; TEMP 97.1; O2SAT 93
== END 2018-03-09 11:00 | disposition home or self-care (01) | DRG 455 ==
LOC: OPS 05:40 → MED/SURG 14:18
PROVIDERS: ADMIT Neurological Surgery; ATTEND Neurological Surgery